=== PATIENT | female | born 1975 | race African-American/Black ===

== ENCOUNTER 2017-02-25 15:52 | Inpatient (IN) | payer MEDICAID ==
[~2017-02-25] VITALS: Ht 165.1 cm; Wt 72.1 kg
[2017-02-25 16:28] VITALS: BP 109/64
[2017-02-25 16:42] LABS: MEAN CORPUSCULAR HEMOGLOBIN 18.8 PG (27.0-31.0); MEAN CORPUSCULAR HGB CONC 27.4 G/DL (32.0-36.0); MEAN CORPUSCULAR VOLUME 68 FL (80-99); MEAN PLATELET VOLUME 7.8 FL (6.5-10.1); PLATELET COUNT 371 K/UL (150-450); RED BLOOD COUNT 2.39 M/UL (4.20-5.40); RED CELL DISTRIBUTION WIDTH 32.9 % (11.6-14.8); WHITE BLOOD COUNT 11.6 K/UL (4.8-10.8)
[2017-02-25 16:52] LABS: PROTHROMBIN TIME 10.4 SEC (9.30-11.50)
[2017-02-25 16:55] LABS: ALANINE AMINOTRANSFERASE 17 U/L (3-33); ALBUMIN/GLOBULIN RATIO 1.2 (1.0-2.7); ANION GAP 15 (5-15); ASPARTATE AMINO TRANSFERASE 18 U/L (5-40); CALCIUM 8.7 mg/dL (8.6-10.2); CARBON DIOXIDE 20 mEQ/L (20-30); CHLORIDE 103 mEQ/L (98-107); CREATININE 0.8 mg/dL (0.5-0.9); GLOMERULAR FILTRATION RATE > 60 mL/min (>60); HEMOLYSIS 0; POTASSIUM 4.1 mEQ/L (3.4-4.9); SODIUM 138 mEQ/L (135-145); TOTAL PROTEIN 7.6 g/dL (6.6-8.7)
[2017-02-25 18:00] LABS: BAND NEUTROPHILS % (MANUAL) 1 % (0-8); BASOPHILS % (MANUAL) 2 % (0-2); EOSINOPHILS % (MANUAL) 3 % (0-3); HYPOCHROMASIA 3+; LYMPHOCYTES % (MANUAL) 22 % (20-45); MICROCYTES 3+; NEUTROPHILS % (MANUAL) 67 % (45-75); TOTAL CELLS COUNTED 100
[2017-02-25 18:01] LABS: ANISOCYTOSIS 3+; PLATELET ESTIMATE ADEQUATE; PLATELET MORPHOLOGY NORMAL
--- NOTE | 2017-02-25 18:40 | Emergency Room Report ---
History of Present Illness General Chief Complaint: Abnormal Labs Source: Patient Present Illness HPI Patient is a 41-year-old female who presented after abnormal laboratory tests. Patient had a prior history of anemia as well as the bruising. Patient noticed increased bruising to her left thigh. Patient stated this had began spontaneously. Patient reports having normal menses. He denies any hematemesis or bloody stools. Patient stated that she had been told by her doctor to present to the hospital after abnormal lab test was presented yesterday. The patient denied any shortness of breath or chest pain. She denies any abdominal pain. Patient states she otherwise feels well. Allergies: Coded Allergies: PENICILLINS (Verified Allergy, Unknown, 02/25/17) Patient History Past Medical History: see triage record Last Menstrual Period: 01/31/17 Now: No Reviewed Nursing Documentation: PMH: Agreed, PSxH: Agreed Nursing Documentation-PMH Past Medical History: No Stated History Review of Systems All Other Systems: negative except mentioned in HPI Physical Exam Vital Signs Date Time Temp Pulse Resp B/P Pulse Ox O2 Delivery O2 Flow Rate FiO2 02/25/17 16:05 99.5 105 14 109/64 100 Room Air Sp02 EP Interpretation: reviewed, normal General Appearance: normal inspection, well appearing, no apparent distress, alert, GCS 15 Head: atraumatic Eyes: bilateral eye conjunctivae pale ENT: normal ENT inspection, hearing grossly normal, normal voice Neck: normal inspection, full range of motion, supple, no bony tend Respiratory: normal inspection, lungs clear, normal breath sounds, no respiratory distress, no retraction, no wheezing Cardiovascular #1: regular rate, rhythm, no edema Gastrointestinal: normal inspection, normal bowel sounds, non tender, soft, no guarding, no hernia Genitourinary: no CVA tenderness Musculoskeletal: normal inspection, back normal, normal range of motion Neurologic: normal inspection, alert, oriented x3, responsive, 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 Differential diagnoses include was noted to acute hemorrhage, chronic anemia, a bone marrow suppression , aplastic anemia among others. Because of complexity of patient's case laboratory testing studies were ordered. The patient was noted to be markedly anemic on laboratory testing with a hemoglobin of less than 5. The patient noted be somewhat febrile. Patient was given Tylenol and was consented for blood transfusion.Dr. Garrison Mejia was contacted for inpatient management for severe anemia. EKG showed no acute EKG changes consistent with ischemia. The patient was crossmatched for 4 units of blood. The patient remained normotensive throughout her department course. Labs Test 02/25/17 16:22 02/25/17 19:35 White Blood Count 11.6 K/UL (4.8-10.8) Red Blood Count 2.39 M/UL (4.20-5.40) Hemoglobin 4.5 G/DL (12.0-16.0) Hematocrit 16.4 % (37.0-47.0) Mean Corpuscular Volume 68 FL (80-99) Mean Corpuscular Hemoglobin 18.8 PG (27.0-31.0) Mean Corpuscular Hemoglobin Concent 27.4 G/DL (32.0-36.0) Red Cell Distribution Width 32.9 % (11.6-14.8) Platelet Count 371 K/UL (150-450) Mean Platelet Volume 7.8 FL (6.5-10.1) Neutrophils (%) (Auto) % (45.0-75.0) Lymphocytes (%) (Auto) % (20.0-45.0) Monocytes (%) (Auto) % (1.0-10.0) Eosinophils (%) (Auto) % (0.0-3.0) Basophils (%) (Auto) % (0.0-2.0) Differential Total Cells Counted 100 Neutrophils % (Manual) 67 % (45-75) Lymphocytes % (Manual) 22 % (20-45) Monocytes % (Manual) 5 % (1-10) Eosinophils % (Manual) 3 % (0-3) Basophils % (Manual) 2 % (0-2) Band Neutrophils 1 % (0-8) Platelet Estimate Adequate Platelet Morphology Normal Hypochromasia 3+ Anisocytosis 3+ Microcytosis 3+ Prothrombin Time 10.4 SEC (9.30-11.50) Prothromb Time International Ratio 1.0 (0.9-1.1) Activated Partial Thromboplast Time 23 SEC (23-33) Sodium Level 138 mEQ/L (135-145) Potassium Level 4.1 mEQ/L (3.4-4.9) Chloride Level 103 mEQ/L (98-107) Carbon Dioxide Level 20 mEQ/L (20-30) Anion Gap 15 (5-15) Blood Urea Nitrogen 7 mg/dL (7-23) Creatinine 0.8 mg/dL (0.5-0.9) Estimat Glomerular Filtration Rate > 60 mL/min (>60) Glucose Level 118 mg/dL (74-106) Calcium Level 8.7 mg/dL (8.6-10.2) Total Bilirubin 0.4 mg/dL (0.0-1.2) Aspartate Amino Transf (AST/SGOT) 18 U/L (5-40) Alanine Aminotransferase (ALT/SGPT) 17 U/L (3-33) Alkaline Phosphatase 99 U/L (35-104) Total Protein 7.6 g/dL (6.6-8.7) Albumin 4.2 g/dL (3.5-5.2) Globulin 3.4 g/dL Albumin/Globulin Ratio 1.2 (1.0-2.7) Last Vital Signs Date Time Temp Pulse Resp B/P Pulse Ox O2 Delivery O2 Flow Rate FiO2 02/25/17 16:28 99.5 14 109/64 100 Room Air 02/25/17 16:05 105 Status: unchanged Disposition: ADMITTED INPATIENT Condition: Serious Referrals: NON PHYSICIAN (PCP) Fabio Herr Feb 25, 2017 18:40
[2017-02-25] MEDS ORDERED: Acetaminophen 500mg (ES) tab ORAL ONE (18:45)
[2017-02-25 19:05] VITALS: BP 109/70
[2017-02-25 20:02] LABS: APPEARANCE,URINE CLEAR; KETONES,URINE NEGATIVE (NEGATIVE); LEUKOCYTE ESTERASE ,URINE 2+ (NEGATIVE); NITRITE,URINE NEGATIVE (NEGATIVE); PH,URINE 6.5 (4.5-8.0); PROTEIN,URINE NEGATIVE (NEGATIVE); UROBILINOGEN,URINE NORMAL MG/DL (0.0-1.0)
[2017-02-25 20:05] LABS: AMORPHOUS SEDIMENT,UR FEW /LPF; BACTERIA,URINE FEW /HPF; RBC,URINE 0-2 /HPF (0 - 2); SQUAMOUS EPITHELIAL CELL,UR FEW /LPF (NONE/OCC)
[2017-02-25] MEDS ORDERED: ZOFRAN ODT8 MG ORAL (20:49)
[2017-02-25] MEDS ORDERED: CYCLOBENZAPRINE10 MG ORAL (20:50)
[2017-02-25] MEDS ORDERED: TYLENOL EXTRA500 MG ORAL (20:50)
[2017-02-25 21:05] VITALS: BP 120/64
[2017-02-25] MEDS ORDERED: Zolpidem 5mg tab ORAL PRN (21:30)
[2017-02-25] MEDS ORDERED: Miralax 17gm pkt ORAL PRN (21:30)
[2017-02-25 22:53] VITALS: BP 122/60
[2017-02-26] VITALS: BP 119/73
[2017-02-26 04:00] VITALS: BP 119/69
[2017-02-26 07:41] LABS: PROTHROMBIN TIME 10.8 SEC (9.30-11.50)
[2017-02-26 07:47] LABS: MEAN CORPUSCULAR HEMOGLOBIN 23.7 PG (27.0-31.0); MEAN CORPUSCULAR HGB CONC 31.5 G/DL (32.0-36.0); MEAN CORPUSCULAR VOLUME 75 FL (80-99); MEAN PLATELET VOLUME 8.3 FL (6.5-10.1); PLATELET COUNT 366 K/UL (150-450); RED BLOOD COUNT 2.68 M/UL (4.20-5.40); RED CELL DISTRIBUTION WIDTH 29.3 % (11.6-14.8); WHITE BLOOD COUNT 8.6 K/UL (4.8-10.8)
[2017-02-26 08:00] VITALS: BP 131/83
[2017-02-26 08:08] LABS: ANISOCYTOSIS 2+; BAND NEUTROPHILS % (MANUAL) 0 % (0-8); BASOPHILS % (MANUAL) 1 % (0-2); EOSINOPHILS % (MANUAL) 4 % (0-3); HYPOCHROMASIA 2+; LYMPHOCYTES % (MANUAL) 20 % (20-45); MICROCYTES 2+; NEUTROPHILS % (MANUAL) 61 % (45-75); PLATELET ESTIMATE ADEQUATE; PLATELET MORPHOLOGY NORMAL; TOTAL CELLS COUNTED 100
[2017-02-26 08:09] LABS: TEAR DROP CELLS OCCASIONAL
--- NOTE | 2017-02-26 10:09 | Diagnostic Imaging Report ---
Indication: Chest pain Technique: XRAY CHEST 1 V Comparison: None Findings: Cardiac silhouette is prominent. There is no consolidation or pleural effusion. Degenerative changes of the spine are noted. Impression: No acute cardiopulmonary disease. Cardiomegaly.
--- NOTE | 2017-02-26 11:26 | History & Physical ---
History and Physical History & Physicial HP dictated # [id number] MADELINE THOMAS Feb 26, 2017 11:26
[2017-02-26 12:00] VITALS: BP 118/73
[2017-02-26] MEDS ORDERED: NS 275ml ONE (15:06)
[2017-02-26] MEDS ORDERED: Tubing IV Blood Pump IV ONE (15:06)
[2017-02-26 16:00] VITALS: BP 129/74
[2017-02-26 20:00] VITALS: BP 128/52
[2017-02-27] VITALS: BP 124/71
[2017-02-27 04:00] VITALS: BP 127/79
--- NOTE | 2017-02-27 05:30 | History and Physical Report ---
DATE OF ADMISSION: 02/25/2017 CHIEF COMPLAINT: The patient was found to be severely anemic by having an outpatient CBC done. HISTORY OF PRESENT ILLNESS: This is a 41-year-old female, who was in her usual state of health. She had a blood test two days ago and then, she was told to come to the emergency room because of the critical value. The patient had a CBC here and was found to be very anemic with hemoglobin of 4.5 with a hematocrit of 16.4. The patient was admitted for transfusion and workup. Also to note, the patient had a fever of 101.5 degrees in the emergency room. The patient states that she was told that she was anemic also four years ago when she had a baby and she was told that she was iron deficient. She has not had any blood tests for the past four years and she had one on Monday, just as a routine checkup. She denies any blood in stool or hematemesis. She does have a history of heavy vaginal bleeding, she said almost all of her life. PAST MEDICAL HISTORY: No history of peptic ulcer disease. No history of diabetes or hypertension. The patient is status post gastric bypass surgery. MEDICATIONS: The patient takes Flexeril and Tylenol at home. ALLERGIES: Penicillin. SOCIAL HISTORY: The patient lives at home. She smokes a pack every few days. She has been smoking for many years. Also drinks about four beers a day. REVIEW OF SYSTEMS: Noncontributory except what was mentioned. PHYSICAL EXAMINATION: GENERAL: The patient is a 41-year-old female, in no acute distress. VITAL SIGNS: Blood pressure is 131/83, pulse is 74, temperature 98 degrees, and respiratory rate is 20. HEENT: Pale conjunctivae. Anicteric sclerae. NECK: Supple. LUNGS: Clear to auscultation. HEART: S1 and S2 without murmurs or rubs. ABDOMEN: Soft and nontender. No masses. EXTREMITIES: No cyanosis or edema. LABORATORY FINDINGS: The CBC as of today shows WBC of 8.6, hematocrit 20.1, hemoglobin is 6.3, and platelets are 366,000. A chemistry panel shows a serum sodium of 138, potassium 4.1, chloride 103, BUN 7, creatinine 0.8, and blood sugar is 118. UA shows no protein and 2 to 4 WBCs per high-power field. ASSESSMENT: This is a 41-year-old, female, who is admitted with severe anemia. She has had history of iron-deficiency anemia in the past, likely as a result of her menstrual cycles, which has been heavy. She likely has iron deficiency based on also the fact that she has a low MCV on CBC results. Other possibility is that she has a bone marrow problem. She has fevers with no source so far. PLAN: The patient was transfused three units of packed blood red blood cells yesterday and her hematocrit stable at 20.1, so she will receive another unit of packed red blood cells today. Iron panel will be checked with [facility]. The patient was started on IV antibiotics empirically. I did tell her that if her iron panel is normal, then the next step would be possibly a bone marrow biopsy, which can be done as an outpatient. Also, she was advised to stop smoking and drinking alcohol. Garrison Mejia M.D. DR: Skylar JOB#: [id number] CC: SHAWNA
[2017-02-27 08:04] VITALS: BP 134/76
[2017-02-27 08:10] LABS: BASOPHILS % (AUTO) 1.1 % (0.0-2.0); EOSINOPHILS % (AUTO) 4.8 % (0.0-3.0); LYMPHOCYTES % (AUTO) 24.1 % (20.0-45.0); MEAN CORPUSCULAR HEMOGLOBIN 24.3 PG (27.0-31.0); MEAN CORPUSCULAR HGB CONC 31.3 G/DL (32.0-36.0); MEAN CORPUSCULAR VOLUME 78 FL (80-99); MONOCYTES % (AUTO) 10.4 % (1.0-10.0); NEUTROPHILS % (AUTO) 59.6 % (45.0-75.0); PLATELET COUNT 571 K/UL (150-450); RED BLOOD COUNT 3.32 M/UL (4.20-5.40); RED CELL DISTRIBUTION WIDTH 27.7 % (11.6-14.8); WHITE BLOOD COUNT 9.6 K/UL (4.8-10.8)
[2017-02-27 08:29] LABS: HEMOLYSIS 1; IRON 20 ug/dL (37-145); TOTAL IRON BINDING CAPACITY 502 ug/dL (250-400)
[2017-02-27] MEDS ORDERED: FERROUS SULFAT325 M2 ORAL (10:00)
[2017-02-27 11:18] LABS: OTHERS PATHOLOGIST COMMENT
[2017-02-27 11:30] VITALS: BP 129/76
--- NOTE | 2017-02-28 13:04 | Discharge Summary ---
Discharge Summary Hospital Course Date of Admission Feb 25, 2017 at 18:36 Date of Discharge Feb 27, 2017 at 14:07 Admitting Diagnosis severe anemia AISHWARYA Last is a 41 year old female who was admitted on Feb 25, 2017 at 18: 36 for Severe Anemia Hospital Course dc summary #[id number] Discharge Medications New Medications: Ferrous Sulfate (Ferrous Sulfate) 325 Mg Tablet.dr 325 MG ORAL TID for 90 Days, #30 TAB 0 Refills Continued Medications: Acetaminophen* (Tylenol Extra Strength*) 500 Mg Tablet 500 MG ORAL Q6H PRN for Mild Pain/Temp > 100.5, TAB 0 Refills Cyclobenzaprine Hcl* (Flexeril*) 10 Mg Tablet 10 MG ORAL BID, TAB Ondansetron Odt* (Zofran Odt*) 8 Mg Tab.rapdis 8 MG ORAL Q8HR PRN for Nausea & Vomiting, #30 TAB Discharge Condition Upon Discharge: stable Discharge Disposition Patient was discharged to Home (01) Discharge Diagnoses: Discharge Instructions Discharge Instructions Special Instructions I have been assigned to complete a D/C Summary on this account. I was not involved in the patient management Monalisa Reynolds NP (Vanchtein) Feb 28, 2017 13:04
--- NOTE | 2017-03-01 02:30 | Discharge Summary 2 SIG ---
DATE OF ADMISSION: 02/25/2017 DATE OF DISCHARGE: 02/27/2017 REASON FOR ADMISSION: 41-year-old female came to emergency room complaining of bruising on her left thigh, which began spontaneously. The patient with a prior history of anemia and bruising. The patient reported normal menstrual periods. She denied hematemesis or bloody stool. The patient had been told by her doctor to get to hospital after abnormal laboratories found the day before arrival to the emergency room. The patient denied shortness of breath. Denied chest pain. Denied abdominal pain. The patient had a low-grade fever of 99.5 degrees, tachycardic - 105, and normotensive. Pulse oximetry was stable on room air. WBC - 11.6, hemoglobin -4.5, and hematocrit -16.4. LFTs were all within normal limits. Renal parameters were stable. The patient was admitted for blood transfusion. ADMITTING DIAGNOSIS: 1. Acute anemia 2. History of anemia. 3. Leukocytosis HOSPITAL STAY: The patient was admitted. The patient undergone a total of four units of packed red blood cells. Prior to discharge, hemoglobin -8.1 and hematocrit -25.8. Anemia workup revealed iron deficiency anemia. The patient was started on iron supplement. Upon discharge, prescription provided for oral iron supplement. No stool specimen for occult blood was provided by patient. The patient was started on empiric antibiotic due to leukocytosis and low-grade fever. Urinalysis was negative. Chest x-ray was negative. No further fevers. Leukocytosis resolved the next day. The patient was counseled on avoidance of smoking and drinking. The patient to follow up with the primary medical doctor for further workup for anemia. The patient was stable for discharge. DISCHARGE DIAGNOSES: Includes: 1. Severe anemia, status post four units packed red blood cells. 2. Iron-deficiency anemia 3. Leukocytosis, resolved. 4. Current smoker. DISCHARGE MEDICATIONS: See medication reconciliation list. DISCHARGE INSTRUCTIONS: The patient was discharged home. Follow up with primary medical doctor for further workup of anemia, specifically stool for occult blood. The patient was counseled to stop smoking and avoid alcohol. Garrison Rahban, M.D. I have been assigned to dictate discharge summary on this account and I was not involved in the patient's management. Monalisa Reynolds (Vanchtein) NIvoryPIvory DR: CORINNE JOB#: [id number] CC: SHAWNA
--- NOTE | 2017-03-01 17:08 | Cardiology Report ---
APPROVED REPORT EKG Measurement Heart [id number] Normal sinus rhythm Normal ECG
== END 2017-02-27 14:07 | disposition home or self-care (01) | DRG 663 ==
LOC: EMR 16:34 → 2E 18:36 → EDBEDREQ 18:46 → 2E 20:05
PROC: 30233N1 Transfusion of Nonautologous Red Blood Cells into Peripheral Vein, Percutaneous Approach (ICD-10-PCS; principal; 2017-02-25)
DX: D50.9 Iron deficiency anemia, unspecified (principal); F17.200 Nicotine dependence, unspecified, uncomplicated; Z88.0 Allergy status to penicillin; Z98.84 Bariatric surgery status
CPT/HCPCS: 36415; 71010; 80053; 81001; 81025; 83540; 83550; 85007; 85025; 85610; 85730; 86850; 86900; 86901; 86920; 93005